=== PATIENT | female | born 1995 | race Caucasian/White ===

== ENCOUNTER 2017-06-23 10:52 | Observation (INO) | payer OTHER ==
[~2017-06-23] VITALS: Ht 160 cm; Wt 75.1 kg
[2017-06-23] MEDS ORDERED: PRENA1 CHEW TA1.4 M1 PO (12:14)
== END 2017-06-23 13:40 ==
LOC: LDR 10:52
PROVIDERS: ADMIT Advanced Practice Midwife
DX: Z03.71 Encounter for suspected problem with amniotic cavity and membrane ruled out (principal); Z3A.36 36 weeks gestation of pregnancy; Z79.899 Other long term (current) drug therapy